=== PATIENT | female | born 1985 | race Caucasian/White ===

== ENCOUNTER 2023-10-22 18:04 | Emergency (ER) | payer MEDICARE, BC, SELFPAY ==
[2023-10-22 18:05] VITALS: BMI 34.7
[2023-10-22 18:06] VITALS: BP 107/77
--- NOTE | 2023-10-22 19:37 | ED.GENMED ---
History of Present Illness
General
Chief Complaint: Abdominal Symptoms
Source: patient and spouse
Exam Limitations: none
Time Seen by Provider: 10/22/23 19:20
Nursing documentation reviewed up to this point in time: agreed with
Travel History
Have you had any contact with someone who has COVID-19?: No
Do you have any symptoms of coronavirus? Fever > 100 degrees, chills, cough, shortness of breath, sore throat, loss of taste or smell, muscle aches, or headache?: No
History of Present Illness
History of Present Illness:
38-year-old female presents to the emergency department complaining of constipation and nausea. She has a history of appendiceal cancer with bowel resection. She also has a history of multiple sclerosis.
Past History
Past History
ED Past Medical History: Other (Madison's thyroiditis) and Other (MS, interstitial cystitis, appendiceal CA)
ED Past Surgical History: Bowel resection and Orthopedic (L4/5/S1)
Social History
Tobacco: Non-smoker
Alcohol: None
Drug: None
Review of Systems
Review of Systems
Allergies reviewed?: Yes
All Other Systems: Not applicable
Constitutional: Reports no symptoms
EENT: Reports no symptoms
Respiratory: Reports no symptoms
Cardiac: Reports no symptoms
ABD/GI: Reports abdominal pain, nausea and constipated
: Reports no symptoms
Musculoskeletal: Reports no symptoms
Skin: Reports no symptoms
Neurological: Reports no symptoms
Endocrine: Reports no symptoms
Hematologic/Lymphatic: Reports no symptoms
Psychiatric: Reports no symptoms
Phy Exam
Physical Exam
Physical Exam:
Physical Exam
General: afebrile
Neck: supple. no meningeal signs. normal posterior pharynx
Heart: s1/s2 regular rate and rhythm, no murmur. equal radial
pulses.
HEENT: Pupils equal round reactive to light, EOMI
Lungs: no acute respiratory distress. clear bilaterally
Abdomen: normal bowel sounds. diffuse tenderness, midline abdominal scar. no CVAT
Neuro: alert and oriented. no focal neurological deficits cranial nerves II through XII intact
Skin: no rash
Psychiatric: well kept. interactive and cooperative
Extremities: no edema. no calf tenderness. negative homans. good distal pulses
Course
Orders/Labs/Results
Orders:
Orders
10/22/23 19:33
IV Insert/Care/Rem.- Treatment PRN
Iohexol [Omnipaque] See Protocol PO NOW STA
10/22/23 19:34
CT Abd/pel W Iv And Oral Contr Urgent
Comment:
Reason For Exam: nausea, constipation
10/22/23 19:35
0.9% Sodium Chloride 1000 ml [Nss] 1,000 ml IV BOLUS
Ondansetron Injectable [Zofran] 4 mg IV NOW STA
10/22/23 19:54
Complete Blood Count/With Diff Urgent
10/22/23 20:31
Comprehensive Metabolic Panel Urgent
Lipase Urgent
10/22/23 23:08
Magnesium Citrate [Citroma] 300 ml PO ONCE ONE
Abnormal Lab Results
10/22/23 10/22/23
19:54 20:31
RBC 3.89 L 10^6/uL
(4.20-5.40)
Hct 35.1 L %
(37.0-47.0)
MCH 31.9 H pg
(27.0-31.0)
AST 51 H U/L
(14-36)
ALT 42 H U/L
(0-35)
Total Protein 9.1 H g/dl
(6.3-8.2)
10/22/23 19:54
10/22/23 20:31
Vital Signs
Initial and Last Documented VS:
Initial Vital Signs
Temp Pulse Resp BP Pulse Ox
98.2 F 97 20 107/77 98
10/22/23 18:06 10/22/23 18:06 10/22/23 18:06 10/22/23 18:06 10/22/23 18:06
Last Documented Vital Signs
Temp Pulse Resp BP Pulse Ox
98.2 F 97 20 107/77 98
10/22/23 18:06 10/22/23 18:06 10/22/23 18:06 10/22/23 18:06 10/22/23 18:06
MDM/Problems Addressed
Differential Diagnosis Includes:
Constipation, bowel obstruction
MDM/Problems Addressed:
38-year-old female with constipation. No signs of bowel obstruction. No signs of incarcerated hernia. Stable for discharge. Treat with dose of magnesium citrate to take at home.
Chronic conditions affecting care: Previous abdomnial surgery
Acute Exacerbation and/or Progression of Chronic Illness: Previous abdomnial surgery
*Radiology
Radiology exam reviewed: radiology read reviewed (CT abdomen pelvis no signs of bowel obstruction)
*Pulse Oximetry
Patient hypoxic: no
*EKG
Interpreted by ED Provider?: NA
*Assistant Farm Operations Manager Interpretation
Rate: Assistant Farm Operations Manager- N/A
*Critical Care Note
Total Time (30-74mins, 75-104mins- exclusive of procedures): Not Applicable
Patient Management
Social determinants of health affecting care: Living situation and Strong social support
Escalation/DeEscalation of care consider admission/obs:
Admit not indicated
ED Attending Note
-
Portions of this chart may have been created with voice recognition software.� Occasional wrong word or��sound alike� substitutions may have occurred due to the inherent limitations of voice recognition software.
Discharge Plan
Departure
Patient Disposition: Home (Routine Discharge)
Date of Disposition: 10/22/23
Time of Disposition: 23:09
Patient with high blood pressure during this ER visit?: No
Condition: Good
Discharge Problem:
Constipation
Instructions: Constipation, Adult (DC)
Prescriptions:
No Action
ondansetron 8 mg Tablet,Disintegrating
8 mg PO PRN PRN (Reason: Migraines)
selenium 200 mcg Tablet
200 mcg PO DAILY
levothyroxine [Synthroid] 200 mcg Tablet
200 mcg PO DAILY AT 0700
mupirocin 2 % Ointment
1 applic TOPICAL PRN PRN (Reason: cuts,sores)
epinephrine 0.3 mg/0.3 mL Auto-Injector
0.3 mg IM ONCE
acetylcysteine (bulk) Powder
1 ea MISCELLANEOUS DAILY
duloxetine [Cymbalta] 60 mg Capsule,Delayed Release(Dr/Ec)
60 mg PO HS
levocetirizine [Xyzal] 5 mg Tablet
5 mg PO HS
biotin 2,500 mcg Capsule
2,500 mcg PO DAILY
melatonin 5 mg Tablet
5 mg PO HS PRN (Reason: insomnia)
cholecalciferol (vitamin D3) [Vitamin D3] 50 mcg (2,000 unit) Tablet
50 mcg PO DAILY
Botox 200 unit Recon Soln
200 unit IM [id number]
diclofenac potassium [Cambia] 50 mg Powder In Packet
50 mg PO PRN PRN (Reason: Migraines)
pgasxama-morc-IU-calcium-mins 27 mg iron-400 mcg Tablet
1 tab PO DAILY
diclofenac submicronized [Zorvolex] 35 mg Capsule
35 mg PO PRN PRN (Reason: Migraines, pain)
Trulicity 1.5 mg/0.5 mL Pen Injector
1.5 mg SC FR
ivermectin [Soolantra] 1 % Cream
1 applic TOPICAL PRN PRN (Reason: Rosacea)
Zembrace Symtouch 3 mg/0.5 mL Pen Injector
3 mg SC PRN PRN (Reason: Migraines)
Deha 5 MG tablet
5 mg PO DAILY
Magnesium Chelate 1 CAPSULE capsule
1 cap PO DAILY
Probiotic 1 GUMMY tablet
2 tab PO DAILY
Sensitol 1 TAB tablet
2 tab PO BID
cyanocobalamin (vitamin B-12)
1 dose IM .Q2-3WEEKS
naltrexone 5 MG tablet
5 mg PO DAILY
acetaminophen 325 mg Tablet
650 mg PO Q4HPRN PRN (Reason: HEADACHE) Qty: 60 0RF
diazepam 2 mg Tablet
2 mg PO TIDPRN PRN (Reason: pelvic pain and spasm) Qty: 15 0RF
docusate sodium 100 mg Capsule
100 mg PO BID Qty: 60 0RF
simethicone [Gas Relief 80 (simethicone)] 80 mg Tablet,Chewable
80 mg PO Q6HPRN PRN (Reason: gas distention) Qty: 5 0RF
ketorolac 10 mg tablet
10 mg PO Q8H PRN (Reason: pain) Qty: 12 0RF
insulin glargine [Lantus Solostar U-100 Insulin] 100 unit/mL (3 mL) Insulin Pen
80 unit SC DAILY
Referrals:
Kimberly Laughlin MD [Family Provider] - Call in 1-3 days for appt
Interventions
Interventions:
*Risk Screen - Suicide Last Done: 10/22/23 18:06
*General Assessment Last Done: 10/22/23 18:06
*Neglect/Abuse Screening Last Done: 10/22/23 18:06
Discharge Date and Time
Print Language: MALAY
[2023-10-22] MEDS: OMNIPAQUE 50 ML PO (19:55)
[2023-10-22 20:04] LABS: % Basophils 0.4 % (0-2); % Eosinophils 1.4 % (0-6); % Immature Granulocytes 0.2 % (0-0.5); % Lymphocytes 36.2 % (20.5-51.1); % Monocytes 9.2 % (1.7-9.3); % Neutrophils 52.6 % (42.2-75.2); Absolute Eosinophils 0.1 10^3/uL (0-0.7); Absolute Monocytes 0.5 10^3/uL (0.1-0.6); Absolute Neutrophils 2.9 10^3/uL (1.4-6.5); Hematocrit 35.1 % (37.0-47.0); Hemoglobin 12.4 g/dL (12.0-16.0); Mean Corp Hgb Conc. 35.3 g/dL (33.0-37.0); Mean Corpuscular Hgb 31.9 pg (27.0-31.0); Mean Corpuscular Volume 90.2 fL (81.0-99.0); Mean Platelet Volume 10.3 fL (7.4-10.4); Nucleated Red Blood Cells % 0 %; Platelet Count 219 10^3/uL (130-400); Red Blood Cell Count 3.89 10^6/uL (4.20-5.40); Red Cell Dist. Width 14.1 % (11.5-14.5); White Blood Cell Count 5.5 10^3/uL (4.8-10.8)
[2023-10-22] MEDS: ZOFRAN 4 MG IV (20:33)
[2023-10-22] MEDS: NSS 1000 IV (20:33)
[2023-10-22 20:55] LABS: ALT (SGPT) 42 U/L (0-35); AST (SGOT) 51 U/L (14-36); Albumin 4.5 g/dl (3.5-5.0); Alkaline Phosphatase 122 U/L (38-126); Blood Urea Nitrogen 15 mg/dl (7-17); Carbon Dioxide 25 mmol/L (22-30); Chloride 103 mmol/L (98-107); Glucose 82 mg/dl (70-99); Lipase 88 U/L (23-300); Potassium 4.1 mmol/L (3.5-5.1); Sodium 136 mmol/L (135-145); Total Bilirubin 0.6 mg/dl (0.2-1.3); Total Protein 9.1 g/dl (6.3-8.2); eGFR > 60.00
[2023-10-22] MEDS: CITROMA 300 ML PO (23:15)
[2023-10-22 23:20] VITALS: BP 108/77
== END 2023-10-22 23:22 | disposition home or self-care (01) ==
LOC: EMR 18:04
PROVIDERS: EMERGENCY PHYSICIAN Emergency Medicine; FAMILY PHYSICIAN Internal Medicine
DX: K59.00 Constipation, unspecified (principal); R11.0 Nausea; G35 Multiple sclerosis; E06.3 Autoimmune thyroiditis; Z85.038 Personal history of other malignant neoplasm of large intestine; Z90.49 Acquired absence of other specified parts of digestive tract; Z90.721 Acquired absence of ovaries, unilateral; Z98.1 Arthrodesis status
CPT/HCPCS: 99284; 96374; 96361; 74177; 80053; 83690; 85025; Q9967

== ENCOUNTER 2023-10-24 20:23 | Inpatient (IN) | payer MEDICARE, SELFPAY ==
[2023-10-24 16:27] VITALS: BP 98/75; BMI 34.3
[2023-10-24 16:54] LABS: % Basophils 0.2 % (0-2); % Eosinophils 1.7 % (0-6); % Immature Granulocytes 0.2 % (0-0.5); % Lymphocytes 29.9 % (20.5-51.1); Absolute Eosinophils 0.1 10^3/uL (0-0.7); Absolute Lymphocytes 1.4 10^3/uL (1.2-3.4); Absolute Monocytes 0.6 10^3/uL (0.1-0.6); Absolute Neutrophils 2.6 10^3/uL (1.4-6.5); Hematocrit 33.7 % (37.0-47.0); Hemoglobin 11.9 g/dL (12.0-16.0); Mean Corp Hgb Conc. 35.3 g/dL (33.0-37.0); Mean Corpuscular Hgb 31.3 pg (27.0-31.0); Mean Corpuscular Volume 88.7 fL (81.0-99.0); Mean Platelet Volume 10.3 fL (7.4-10.4); Nucleated Red Blood Cells % 0 %; Platelet Count 216 10^3/uL (130-400); Red Cell Dist. Width 14.2 % (11.5-14.5); White Blood Cell Count 4.7 10^3/uL (4.8-10.8)
[2023-10-24 17:05] LABS: ALT (SGPT) 39 U/L (0-35); AST (SGOT) 47 U/L (14-36); Albumin 4.2 g/dl (3.5-5.0); Alkaline Phosphatase 106 U/L (38-126); Blood Urea Nitrogen 13 mg/dl (7-17); Calcium 9.8 mg/dl (8.4-10.2); Carbon Dioxide 30 mmol/L (22-30); Chloride 104 mmol/L (98-107); Estimated Creatinine Clearance 121 ml/min; Glucose 105 mg/dl (70-99); Lipase 67 U/L (23-300); Potassium 4.1 mmol/L (3.5-5.1); Sodium 136 mmol/L (135-145); Total Bilirubin 0.5 mg/dl (0.2-1.3); Total Protein 8.3 g/dl (6.3-8.2); eGFR > 60.00
--- NOTE | 2023-10-24 18:31 | ED.GENMED ---
History of Present Illness
General
Chief Complaint: Abdominal Pain
Source: patient
Exam Limitations: none
Time Seen by Provider: 10/24/23 18:08
Travel History
Have you had any contact with someone who has COVID-19?: No
Do you have any symptoms of coronavirus? Fever > 100 degrees, chills, cough, shortness of breath, sore throat, loss of taste or smell, muscle aches, or headache?: No
History of Present Illness
History of Present Illness:
This is a 38 year old female that comes in with c/o constipation and abd pain. States that she was her mariaelena the and had a CT scan. Patient was sent home with Magnesium citrate and about 2 hours after taking she vomited. States that the GI
specialist called her and she felt that there was blockage at the Transverse and descending colon. States that she felt this could be related to scar tissue. States that she was told to massage the area and use Fleet enemas. Patient did 4 enemas
with barely any results. States that she can't eat or drink and it comes right back up. States that she was told to come to the ER. States that this could be medication related as she had to change her medication. States that she is nauseated.
vomiting, has abd pain, headache, dizziness and some SOB. Denies any fever, chills, chest pain, diarrhea, urinary burning.
Past History
Past History
ED Past Medical History: Hypothyroidism, Other (Madison's thyroiditis, Migraines, Multiple sclerosis, Numbness and tingling arms and legs, Sleep apnea, Endometriosis, Neurogenic bladder, PCOS, ), Other (Rosacea, Motility issues) and Other (MS,
interstitial cystitis, appendiceal CA)
ED Past Surgical History: Bowel resection, Cholecystectomy, Gynecological (Phong oophorectomy, Tubes removed, ), Orthopedic (L4/5/S1 Fusion, Laminectomy, Discectomy, Left hip labral repair, Carpal tunnel, Right achilles repair) and Other
(Hemicolectomy Greater and less mentectomy with omental bursectomy, Peritoectomy, Abd ligamentum tares excision. )
Social History
Tobacco: Non-smoker
Alcohol: None
Drug: None
Personal:
Living: with family
Review of Systems
Review of Systems
All Other Systems: ROS reviewed and negative except as documented in HPI and ROS
Constitutional: Reports no symptoms; Denies fever or chills
EENT: Reports no symptoms
Respiratory: Reports trouble breathing; Denies cough
Cardiac: Reports no symptoms; Denies chest pain
ABD/GI: Reports abdominal pain, nausea and vomiting; Denies diarrhea
: Reports no symptoms; Denies dysuria, frequency or urgency
Musculoskeletal: Reports no symptoms
Skin: Reports no symptoms
Neurological: Reports dizzy and headache
Psychiatric: Reports no symptoms
Phy Exam
General Physical Exam
General Presentation: no apparent distress
General age: appears stated age
General Skin: warm and dry
General Habitus: normal
General Mental: alert
General Hydration: appears well hydrated
ENT Exam
ENT Exam: TM's normal, pharynx normal and neck supple
Eye Exam
Eye Exam: EOMI
Cardiovascular Exam
Cardiovascular Exam: regular rate/rhythm, no edema, no murmur and normal peripheral pulses
Pulmonary Exam
Pulmonary Exam: lungs clear, no respiratory distress, no rales, chest non tender, no crackles, no rhonchi, no wheezing and no cough
Gastrointestinal Exam
Gastrointestinal Exam: soft, no organomegaly, no pulsatile mass, non distended, tender (Left sided abd tendereness with palpation) and other (Very hypoactive bowel sounds)
Musculoskeletal Exam
Musculoskeletal Exam: full ROM and no edema
Skin Exam
Skin Exam: normal color, warm/dry, no rash and no petechia
Psychiatric Exam
Psychiatric Exam: normal mood/affect
Course
Orders/Labs/Results
Orders:
Orders
10/24/23 16:40
Complete Blood Count/With Diff Urgent
Comprehensive Metabolic Panel Urgent
HCG, Serum Qualitative Screen Urgent
Comment: ADD ON
Lipase Urgent
TSH Urgent
Comment: ADD ON
10/24/23 18:40
0.9% Sodium Chloride 1000 ml [Nss] 1,000 ml IV BOLUS
Acetaminophen 1000MG/100Ml [Ofirmev] 1,000 mg in 100 ml IV ONCE
Acetaminophen IV Indication:: ED Narcotic Naive Pt-ONCE
10/24/23 18:46
Obstruct Series W/PA Chest [CR Obstruct Series W/pa Chest] Urgent
Comment: Had CT on the
Reason For Exam: abd pain
10/24/23 19:29
Test Result ONCE
10/24/23 19:45
Admit/Transfer Patient As Directed
Co-Sign Provider:
Level of Care: Inpatient admission
Assign to:: Medical/Surgical
Physician / Group: hospitalist
Diagnosis: ileus
Reason for Hospitalization: ileus
Expected length of stay greater than two midnights?: Yes
ELOS- Estimated Length of Stay in days: 2
I certify the patient meets the requirements for IP care: Yes
10/24/23 19:53
Code Status As Directed
Resuscitation Status: Full Code
10/24/23 19:59
Ondansetron HCl [Zofran] 4 mg PO Q8HPRN PRN
10/24/23 20:06
Ondansetron Injectable [Zofran] 4 mg .ROUTE .STK-MED ONE
10/24/23 20:13
Ondansetron Injectable [Zofran] 4 mg IV NOW STA
10/24/23 21:08
Bisacodyl [Dulcolax] 10 mg RECTAL [id number] PRN
Dextrose 5%/Lactringers 1000ML [D5lr] 1,000 ml IV 100 mls/hr
Dextrose 50%-Water [Dextrose 50% Syringe] 12.5 grams IV [id number] PRN
Docusate W/Senna [Senokot-S] 1 tablet PO BIDPRN PRN
Glucagon [GlucaGen] 1 mg IM PRN PRN
Polyethylene Glycol Powder [Miralax] 17 grams PO DAILYPRN PRN
10/24/23 21:08
GASTROINTESTINAL CONSULT Routine
Consulting Provider: Jose Thakur
Was physician already notified: Yes
Reason for consult: constipation
Activity As Directed
Activity Level: Out of Bed-Early Mobility
Bedside Glucose Monitoring As Directed
Frequency: AC&HS
Additional Instructions:: Change to q6h if pt on TPN, tube feeding or not eating
Enema As Directed
Type: Milk and molasses
Amount: 50/50
Frequency: once
Location: Rectal
Vital Signs As Directed
Frequency: Per unit guidelines
DX Deep Vein Thrombosis Video Routine
10/25/23 00:00
Heparin 5,000 units SC Q8
10/25/23 Breakfast
NPO
Allow oral meds: Yes
Allow clear liquids: Sips of Clears
NPO with Ice Chips: Yes
Complete Blood Count/With Diff IN AM
Comprehensive Metabolic Panel IN AM
Glycohemoglobin (HgbA1c) IN AM
Hepatitis B Core Ab, IgM IN AM
Hepatitis B Core Ab, Total IN AM
Hepatitis B Surface Antibody IN AM
Hepatitis B Surface Antigen IN AM
Hepatitis C Antibody IN AM
Magnesium IN AM
10/25/23 07:00
Levothyroxine [Synthroid] 200 mcg PO DAILY AT 0700
10/25/23 07:30
Insulin Aspart Corrective Mod [Novolog Flexpen-Moderate Resistance] See Protocol SC AC
Abnormal Lab Results
10/24/23
16:40
WBC 4.7 L 10^3/uL
(4.8-10.8)
RBC 3.80 L 10^6/uL
(4.20-5.40)
Hgb 11.9 L g/dL
(12.0-16.0)
Hct 33.7 L %
(37.0-47.0)
MCH 31.3 H pg
(27.0-31.0)
Monocytes % 13.0 H %
(1.7-9.3)
Glucose 105 H mg/dl
(70-99)
AST 47 H U/L
(14-36)
ALT 39 H U/L
(0-35)
Total Protein 8.3 H g/dl
(6.3-8.2)
TSH 0.35 L uIU/ml
(0.47-4.68)
10/24/23 16:40
10/24/23 16:40
H/H slightly low. Glucose nonfasting. AST/ALT slightly elevated. Lipase normal at 67
Vital Signs
Initial and Last Documented VS:
Initial Vital Signs
Temp Pulse Resp BP Pulse Ox
98.1 F 73 16 98/75 97
10/24/23 16:27 10/24/23 16:27 10/24/23 16:27 10/24/23 16:27 10/24/23 16:27
Last Documented Vital Signs
Temp Pulse Resp BP Pulse Ox
98.1 F 56 18 116/68 99
10/24/23 23:55 10/24/23 23:55 10/24/23 23:55 10/24/23 23:55 10/24/23 23:55
MDM/Problems Addressed
Differential Diagnosis Includes:
Bowel obstruction. Constipation.
MDM/Problems Addressed:
This is a 38 year old female that comes in with c/o abd pain and constipation. States that she as here on the 7th and had a CT scan. States that she was given Magnesium citrate and sent home. States that her GI doctor dose not agree with the CT
reading and feels that the patient has a blockage. Patient has not been able to eat or drink as she then will vomit. Patient was told to come to the ER.
Will check labs and admit.
Chronic conditions affecting care: Previous abdomnial surgery
Acute Exacerbation and/or Progression of Chronic Illness: Previous abdomnial surgery
*Radiology
Radiology exam reviewed: radiology read reviewed (OBSTRUCTION SERIES-NO evidence of active cardiopulmonary disease. Administered oral contrast from Ct scan of October 22, 2023 is seen mainly within the colon. This contrast has progressed to the
inferior aspect of the descending colon. No definite contrast is seen within the rectum on the present exam.) and other (X-ray cont- NO evidence of free intraperitoneal air. )
*Pulse Oximetry
Patient hypoxic: no
*EKG
Interpreted by ED Provider?: NA
Rate: EKG- N/A
*[place] Interpretation
Rate: [place]- N/A
*Critical Care Note
Total Time (30-74mins, 75-104mins- exclusive of procedures): Not Applicable
ED Attending Note
-
Portions of this chart may have been created with voice recognition software.� Occasional wrong word or��sound alike� substitutions may have occurred due to the inherent limitations of voice recognition software.
Discharge Plan
Departure
Patient Disposition: Admit
Date of Disposition: 10/24/23
Time of Disposition: 19:21
Admit to: Med/Surg
Presentation/result/management discussed w/ accepting MD/DO: Hospitalist
Patient with high blood pressure during this ER visit?: No
Condition: Good
Covid-19: Not Applicable
Discharge Problem:
Abdominal pain, Nausea & vomiting
Interventions
Interventions:
*Risk Screen - Suicide Last Done: 10/24/23 16:27
*General Assessment Last Done: 10/24/23 19:50
*Neglect/Abuse Screening Last Done: 10/24/23 16:27
ED- Fall Risk Assessment Last Done: 10/24/23 19:50
*ED COVID-19 Vaccine History Last Done: 10/24/23 19:50
*Nursing Disposition Last Done: 10/24/23 20:58
KW-Qydjmv-Swfklyysew Assessment Last Done: 10/24/23 19:50
Discharge Date and Time
Discharge Date/Time: 10/24/23 21:00
[2023-10-24 19:50] VITALS: BP 114/69
--- NOTE | 2023-10-24 19:57 | HPS.HSE ---
Addendum entered and electronically signed by Luis Miguel Cooper MD 10/24/23 20:00:
MOM enema as per GI
Original Note:
Family Physician
-
Family Physician: iKmberly Laughlin
Chief Complaint
-
n/v/constipation
History of Present Illness
38yo F with hypothyroidism, DM, Hx of CA s/p appendectomy and R hemicolectomy came 2 days before current admission with c/o vomiting, CT done at that time did not show significant acute findings, contrast reached transverse colon. Was started on
laxative enemas 2/2 constipation, however it did not improve, so her GI sent her to the hospital again.
Patient recently had to switch from Monjaro to Trulicity and previously had Hx of constipation with Trulicity
Medical History
Past Medical History
Past Medical History: Reports Other
Additional Past Medical History:
See above
Past Surgical History: Reports Other
Additional Past Surgical History:
see above
Social History
Tobacco: Non-smoker
Alcohol: None
Drug: None
Personal:
Family History
Family History: Not pertinent
Allergies / Home Medications
Allergies reflects when Allergies were last updated in [facility].
Home Medications with original date entered in [facility]
Allergy/Medication List:
Allergies
Allergy/AdvReac Type Severity Reaction Status Date / Time
bacitracin Allergy Contact Verified 10/24/23 16:30
Dermatitis
cefaclor [From Ceclor] Allergy Hives, Verified 10/24/23 16:30
Joint,
Tongue and
Lip
swelling
gabapentin Allergy Hives, Verified 10/24/23 16:30
Joint
Swelling
glatiramer (copolymer 1) Allergy Anaphylaxis Verified 10/24/23 16:30
[From Copaxone]
neomycin Allergy Contact Verified 10/24/23 16:30
Dermatitis
Home Medications
Deha 5 mg PO DAILY Supplement 03/26/22
Magnesium Chelate 1 cap PO DAILY Electrolyte Repletion 03/26/22
Probiotic 2 tab PO DAILY PROBIOTIC 03/26/22
Sensitol 2 tab PO BID Diabetes 03/26/22
acetylcysteine (bulk) 1 ea miscellaneous DAILY Supplement 03/26/22
biotin 2,500 mcg capsule 2,500 mcg PO DAILY Supplement 03/26/22
cholecalciferol (vitamin D3) 50 mcg (2,000 unit) tablet (Vitamin D3) 50 mcg PO DAILY Supplement 03/26/22
cyanocobalamin (vitamin B-12) 1 dose IM .Q2-3WEEKS Supplement 03/26/22
diclofenac potassium 50 mg oral powder packet (Cambia) 50 mg PO PRN PRN Migraines 03/26/22
diclofenac submicronized 35 mg capsule (Zorvolex) 35 mg PO PRN PRN Migraines, pain 03/26/22
dulaglutide 1.5 mg/0.5 mL subcutaneous pen injector (Trulicity) 1.5 mg SC FR Diabetes 03/26/22
duloxetine 60 mg capsule,delayed release (Cymbalta) 60 mg PO HS Depression 03/26/22
epinephrine 0.3 mg/0.3 mL injection, auto-injector 0.3 mg IM ONCE Allergies 03/26/22
ivermectin 1 % topical cream (Soolantra) 1 applic topical PRN PRN Rosacea 03/26/22
levocetirizine 5 mg tablet (Xyzal) 5 mg PO HS Allergies 03/26/22
levothyroxine 200 mcg tablet (Synthroid) 200 mcg PO DAILY AT 0700 Thyroid 03/26/22
melatonin 5 mg tablet 5 mg PO HS PRN insomnia 03/26/22
multivitamin-iron 27 mg-folic acid 400 mcg-calcium and minerals tablet 1 tab PO DAILY Supplement 03/26/22
mupirocin 2 % topical ointment 1 applic topical PRN PRN cuts,sores 03/26/22
naltrexone 5 mg PO DAILY Substance use disorder 03/26/22
onabotulinumtoxinA 200 unit solution for injection (Botox) 200 unit IM [id number] MIGRAINES 03/26/22
ondansetron 8 mg disintegrating tablet 8 mg PO PRN PRN Migraines 03/26/22
selenium 200 mcg tablet 200 mcg PO DAILY Supplement 03/26/22
sumatriptan succinate 3 mg/0.5 mL subcutaneous pen injector (Zembrace Symtouch) 3 mg SC PRN PRN Migraines 03/26/22
acetaminophen 325 mg tablet 650 mg (2 x 325 mg) PO Q4HPRN PRN HEADACHE #60 tabs 03/28/22
diazepam 2 mg tablet 2 mg PO TIDPRN PRN pelvic pain and spasm #15 tabs 03/28/22
docusate sodium 100 mg capsule 100 mg PO BID #60 caps 03/28/22
simethicone 80 mg chewable tablet (Gas Relief 80 (simethicone)) 80 mg PO Q6HPRN PRN gas distention #5 tabs 03/28/22
ketorolac 10 mg tablet 10 mg PO Q8H PRN pain #12 tabs 05/25/22
insulin glargine 100 unit/mL (3 mL) subcutaneous pen (Lantus Solostar U-100 Insulin) 80 unit SC DAILY 03/04/23
Review of Systems
-
A 12 point ROS was completed and negative except as noted: Yes
Abdomen/GI: Reports See HPI
Physical Exam
Vital Signs
Vital Signs
Temp Pulse Resp BP Pulse Ox
98.1 F 61 20 114/69 99
10/24/23 19:50 10/24/23 19:50 10/24/23 19:50 10/24/23 19:50 10/24/23 19:50
Physical Exam
General: Well Developed and Well Nourished
HEENT: NormoCephalic and Anicteric
Respiratory: Clear; No Wheezes or Rales
Cardiac: S1/S2 and Regular Rhythm
GI: Tender (L side)
Genito-urinary: No costovertebral tender
Musculoskeletal: No Clubbing, No Cyanosis and No Edema
Skin: Warm
Neuro: Awake, Alert and Oriented
Psych: Calm
Laboratory Results
-
10/24/23 16:40
10/24/23 16:40
Laboratory Results
Total Bilirubin 0.5 mg/dl (0.2-1.3) 10/24/23 16:40
AST 47 U/L (14-36) H 10/24/23 16:40
ALT 39 U/L (0-35) H 10/24/23 16:40
Alkaline Phosphatase 106 U/L (38-126) 10/24/23 16:40
Lipase 67 U/L (23-300) 10/24/23 16:40
Data Reviewed
-
Lab Data: Labs Reviewed by me
Impression/Plan
-
IMPRESSION/PLAN:
#Nause/Vomiting with ileus
Lipase WNL
Since HX of hemicolectomy - reasonable to rpeeat obstructive series (after neg test)
NPO
NG tube if vomiting reoccurs
Zofran PRN
GI consult
#Transaminitis
Check hepatitis profile
follow LFT
#Hypothyroidism
Check TSH
cont synthroid
#DM type 2 with neuropathy
Accuchecks, insulin SS, DM diet when able to eat
Hold bolus while NPO
DVT ppx hep
FUll code
I have spent at least 78min admitting the patient, communicating to the family and providing direct patient care
[2023-10-24] MEDS: OFIRMEV 100 IV (20:08)
[2023-10-24] MEDS: NSS 1000 IV (20:08)
[2023-10-24] MEDS: ZOFRAN 4 MG IV (20:13)
--- NOTE | 2023-10-24 21:02 | PHANOTE ---
10/24/2023, med rec tech, spoke to pt. to obtain their med. history; pt. states to be taking Trulicity 3 mg/0.5ml Qweek but could not confirm with another source.
[2023-10-24 21:10] VITALS: BP 122/66; BMI 33.9
[2023-10-24 21:44] LABS: HCG, Serum Qualitative Screen Negative
[2023-10-24 22:18] LABS: TSH 0.35 uIU/ml (0.47-4.68)
[2023-10-24 23:55] VITALS: BP 116/68
--- NOTE | 2023-10-25 00:12 | PTCARENOTE ---
Pt arrived from ED at aprox 2110 this evening. Pt able to walk into room unassisted. Pt admission and assessment done. Pt given milk/ molasses enema with + results. Pt instructed to ring for assistance.
[2023-10-25 00:18] LABS: Glucose - Point of Care 97 mg/dl (70-99)
[2023-10-25] MEDS: D5LR 1000 IV ×3 (00:18→18:07)
[2023-10-25] MEDS: HEPARIN SC (00:19)
[2023-10-25] MEDS: VALIUM 10 MG PO ×2 (01:27→21:36)
[2023-10-25] MEDS: ZOFRAN 4 MG PO ×2 (05:56→20:36)
[2023-10-25] MEDS: SYNTHROID 100 MCG PO (05:56)
[2023-10-25] MEDS: SYNTHROID 75 MCG PO (05:57)
[2023-10-25 06:03] LABS: Glucose - Point of Care 104 mg/dl (70-99)
[2023-10-25 06:16] LABS: % Basophils 0.4 % (0-2); % Eosinophils 2.1 % (0-6); % Immature Granulocytes 0.2 % (0-0.5); % Lymphocytes 39.4 % (20.5-51.1); % Monocytes 9.9 % (1.7-9.3); Absolute Eosinophils 0.1 10^3/uL (0-0.7); Absolute Lymphocytes 1.9 10^3/uL (1.2-3.4); Absolute Monocytes 0.5 10^3/uL (0.1-0.6); Absolute Neutrophils 2.3 10^3/uL (1.4-6.5); Hematocrit 30.9 % (37.0-47.0); Hemoglobin 10.8 g/dL (12.0-16.0); Mean Corpuscular Hgb 31.1 pg (27.0-31.0); Mean Platelet Volume 10.3 fL (7.4-10.4); Nucleated Red Blood Cells % 0 %; Platelet Count 192 10^3/uL (130-400); Red Blood Cell Count 3.47 10^6/uL (4.20-5.40); Red Cell Dist. Width 14.2 % (11.5-14.5); White Blood Cell Count 4.8 10^3/uL (4.8-10.8)
[2023-10-25 06:48] LABS: ALT (SGPT) 32 U/L (0-35); AST (SGOT) 40 U/L (14-36); Albumin 3.5 g/dl (3.5-5.0); Alkaline Phosphatase 97 U/L (38-126); Blood Urea Nitrogen 12 mg/dl (7-17); Calcium 9.3 mg/dl (8.4-10.2); Carbon Dioxide 28 mmol/L (22-30); Chloride 108 mmol/L (98-107); Estimated Creatinine Clearance > 125 ml/min; Glucose 90 mg/dl (70-99); Potassium 3.7 mmol/L (3.5-5.1); Sodium 140 mmol/L (135-145); Total Bilirubin 0.5 mg/dl (0.2-1.3); Total Protein 7.2 g/dl (6.3-8.2); eGFR > 60.00
[2023-10-25 07:15] LABS: Hepatitis B Surface Antigen Negative (Negative)
[2023-10-25 07:30] VITALS: BP 115/80
[2023-10-25 07:34] LABS: Hepatitis B Core Ab, Total Reactive (Negative); Hepatitis C Antibody Negative (Negative)
[2023-10-25 08:33] LABS: Hepatitis B Surface Antibody Positive
[2023-10-25] MEDS: HEPARIN 5000 UNITS SC ×3 (08:39→23:18)
[2023-10-25 08:48] LABS: Hepatitis B Core Ab, IgM Negative (Negative)
[2023-10-25 08:59] LABS: Glycohemoglobin (HgbA1c) 4.5 % (4.0-5.6)
--- NOTE | 2023-10-25 10:29 | CON.GI ---
Addendum entered and electronically signed by Faby Osman NP 10/25/23 16:26:
Office follow-up 11/15/23 @ 11:30 with myself in the office, placed on discharge information.
Addendum entered and electronically signed by Mary Vieyra DO 10/25/23 12:37:
I saw and examined the patient.
The DRESSED POULTRY GRADER or PA's note was reviewed and I agree with the note.
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
dysmotility admitted with worsening constipation and abdominal pain. She follows with Dr. Jin and had recently been started on Linzess in addition to Motegrity. She notes recently resuming Trulicity, previously on Mounjaro but ran out of the
medication. Few she feels like her constipation worsened at this time. After adding Linzess, she did not notice much of a difference, on admission she received a milk of molasses enema and shortly after that had a large volume of stool followed by
passing a lot of flatus. At this time she feels significantly improved, and improve bloating and abdominal distention as well. This was the first time she has had an appetite in the last week.
Abdominal Xray 10/23: Contrast is present within the transverse colon and splenic flexure, with some contrast extending into the inferior aspect of the descending colon. No definite contrast is seen within the rectum
CT scan on 10/23 w/o evidence of obstruction, PO contrast is seen reaching the left-side of the transverse colon.
CT scan on 10/21 which showed no evidence of a bowel obstruction but did show significant left sided colonic stool burden.
I suspect abrupt change in bowel habits was due to changing to Trulicity. Recommend resuming bowel regimen at this time, will start MiraLAX twice daily. She can be discharged on her home Motegrity as well as the Linzess samples she has but I would
advise her to take an additional dose of MiraLAX if no bowel movement on her regimen after a day and she can continue to up titrate as needed. She will speak to her online content coordinator regarding the Trulicity. Will also add in simethicone as needed.
Original Note:
Consultation
-
Date/Time Consultation Requested: 10/24/23
Date/Time Consultation Performed: 10/25/23 @ 10:30
Requesting Provider: Dr. Cooper
Performing Provider: ABRAM Rodriguez; Dr. Mary Vieyra
Reason for Consultation: constipation
Medical History
Chief Complaint / HPI
Chief Complaint: nausea, vomiting, constipation
History of Present Illness:
The patient is a 38-year-old female with a complex past medical history including appendiceal cancer status post right hemicolectomy and other numerous surgeries as well as chemotherapy, MS, GI dysmotility, hypothyroidism, Madison's disease,
diabetes on Trulicity, status post cholecystectomy, who presented to the emergency room with complaints of nausea, vomiting, and constipation, which we are being asked to evaluate for. Upon review of records the patient is known to Dr. Jin in our
office, last seen on September 25 due to difficulty with moving her bowels. She was placed on Motegrity at that time with consideration of adding Linzess or Trulance to help with her bowels. She has had multiple surgeries and chemotherapy given her
history of appendiceal cancer, and was pending approval for surgery of abdominal reconstruction with lysis of adhesions which thought may help her GI symptoms. She had been having vomiting and constipation at home and had undergone an outpatient CT
scan on 10/21 which showed no evidence of a bowel obstruction but did show significant left sided colonic stool burden. She was advised to start on enemas at home and to go to the emergency room if she had worsening symptoms. She notes that she had
been having ongoing constipation as of recently. She notes that she has been on Mounjaro for her diabetes which was well-controlled. She notes that she did not have any significant symptoms in relation to using this but this medication became
unavailable and she had to switch back to Trulicity at the beginning of September. She notes that since then she has had progressive constipation, which had been present when she was on Trulicity in the past. She notes that she was using stool
softeners due to having very small hard stool balls, but this was not helping. She then added Senokot which did not produce a bowel movement but made her extremely gassy. She was straining significantly and did have some traces of blood on toilet
paper but this was thought to be related to hemorrhoids. She had been taking Motegrity along with Linzess but did not see any improvement. She notes that her abdomen did get progressively distended and was having discomfort along the left upper
abdomen. She denies any melena, hematochezia, or hematemesis. She does admit to nausea with episodes of vomiting as well. She notes her last dose of Trulicity was on Saturday. Her last bowel movement was last Saturday prior to her admission.
She otherwise denies any fevers, chills, chest pain, shortness of breath, dysphagia, odynophagia, or significant weight loss. She denies any use of NSAIDs. Last EGD and colonoscopy as noted below. She had initial diagnosis of appendiceal cancer
after undergoing laparoscopic surgery in March [address] Forrester. She was referred to [facility] where she underwent initial surgery with Dr. Desai and underwent HIPEC treatment along with other numerous surgeries including right hemicolectomy.
She underwent an x-ray of the abdomen which did not show any significant signs of obstruction. She was made n.p.o., and given a milk and molasses enema. She did have significant bowel movements overnight, and reports that her vomiting has
subsided.
Past Medical History
Past Medical History: Cancer (Appendiceal cancer), Fibromyalgia, GERD, Hypothyroidism (Madison's disease), NIDDM and Other (MS, sleep apnea)
Past Surgical History: Appendectomy, Bowel Resection (Right hemicolectomy, cytoreductive surgery), Cholecystectomy, Gynecological (Left ovarian cystectomy, excision of endometriosis, excision of right labial lesion), Orthopedic (Lumbar fusion) and
Other (Carpal tunnel release)
Social History
Tobacco: Non-Smoker
Alcohol: None
Drug: None
Family History
Family History: Other (Family history of colon polyps among father and mother)
Allergies / Home Medications
Allergy/AdvReac Type Severity Reaction Status Date / Time
bacitracin Allergy Contact Verified 10/24/23 16:30
Dermatitis
cefaclor [From Ceclor] Allergy Hives, Verified 10/24/23 16:30
Joint,
Tongue and
Lip
swelling
gabapentin Allergy Hives, Verified 10/24/23 16:30
Joint
Swelling
glatiramer (copolymer 1) Allergy Anaphylaxis Verified 10/24/23 16:30
[From Copaxone]
neomycin Allergy Contact Verified 10/24/23 16:30
Dermatitis
�Medication �Instructions �Recorded
Botox 1 dose IM [id number] Migraine 10/24/23
Lactobac no.2-Bifidobac no.1-S. 2 cap PO DAILY Supplement 10/24/23
thermo 112.5 billion cell capsule
(Visbiome)
Linzess 1 cap PO DAILYPRN PRN diarrhea 10/24/23
azelastine 137 mcg-fluticasone 50 1 spray intranasal BID 10/24/23
mcg/spray nasal spray
cholecalciferol (vitamin D3) 75 75 mcg PO DAILY Supplement 10/24/23
mcg (3,000 unit) tablet
cyanocobalamin (vitamin B-12) 1,000 mcg IM QMONTH Supplement 10/24/23
1,000 mcg/mL injection solution
diazepam 5 mg tablet 5 mg PO DAILYPRN PRN anxiety 10/24/23
diazepam 5 mg tablet 10 mg PO HS Sleep 10/24/23
diclofenac potassium 50 mg oral 50 mg PO DAILY PRN migraines 10/24/23
powder packet
diclofenac potassium 50 mg tablet 50 mg PO TID PRN migraines 10/24/23
dulaglutide 3 mg/0.5 mL 3 mg SC SA Diabetes 10/24/23
subcutaneous pen injector
(Trulicity)
estradiol 0.1 mg/24 hr semiweekly 1 patch transdermal MOWEFR@219910/24/23
transdermal patch (Norma) Hormonal Agent
estradiol 10 mcg vaginal tablet 10 mcg vaginal MOTH@2199 Hormonal 10/24/23
Agent
levocetirizine 5 mg tablet (Xyzal) 5 mg PO HS Allergies 10/24/23
levothyroxine 175 mcg tablet 175 mcg PO DAILY Thyroid 10/24/23
lidocaine HCl 2 % mucosal jelly in 1 applic topical QIDPRN PRN 10/24/23
applicator vaginal area
melatonin 5 mg tablet 5 mg PO HS PRN sleep 10/24/23
mupirocin 2 % topical ointment 1 applic topical BID PRN cuts, 10/24/23
sores on abd folds
naltrexone 5 mg PO HS itching 10/24/23
ondansetron 8 mg disintegrating 8 mg PO Q8H PRN nausea/vomiting 10/24/23
tablet
pantoprazole 40 mg tablet,delayed 40 mg PO DAILY Gastrointestinal 10/24/23
release Issue
progesterone micronized 200 mg 200 mg PO DIRECTED Hormonal 10/24/23
capsule Agent
prucalopride 2 mg tablet 2 mg PO QPM Constipation 10/24/23
(Motegrity)
sumatriptan succinate 3 mg/0.5 mL 3 mg SC Q1HPRN PRN migraines 10/24/23
subcutaneous pen injector
(Zembrace Symtouch)
therapeutic multivitamin 1 tab PO DAILY Supplement 10/24/23
venlafaxine 37.5 mg 37.5 mg PO DAILY Depression 10/24/23
capsule,extended release 24 hr
vibegron 75 mg tablet (Gemtesa) 75 mg PO DAILY Urinary Issue 10/24/23
Review of Systems
-
History Source: Patient
Constitutional: Reports No Symptoms
EENT: Reports No Symptoms
Respiratory: Reports No Symptoms
Cardiac: Reports No Symptoms
Abdomen/GI: Reports Abdominal Pain, Nausea, Vomiting and Constipated
: Reports No Symptoms
Musculoskeletal: Reports No Symptoms
Skin: Reports No Symptoms
Neurological: Reports No Symptoms
Vital Signs
Temp Pulse Resp BP Pulse Ox
97.7 F 56 16 115/80 98
10/25/23 07:30 10/25/23 07:30 10/25/23 07:30 10/25/23 07:30 10/25/23 07:30
Physical Exam
Exam
General: Well Developed, Well Nourished and No Apparent Distress
HEENT: Normocephalic, Anicteric and Atraumatic
Respiratory: Clear
Cardiac: S1/S2 and Regular Rhythm
Breast: Deferred by me
GI: Soft, Non Distended, Tender (Minimal tenderness in the upper abdomen) and Other (Soft with active bowel sounds)
Musculoskeletal: No Edema
Skin: Warm and Dry
Neuro: Awake, Alert and Oriented
Psych: Calm
Results
WBC 4.8 10^3/uL (4.8-10.8) 10/25/23 05:34
Hgb 10.8 g/dL (12.0-16.0) L 10/25/23 05:34
Hct 30.9 % (37.0-47.0) L 10/25/23 05:34
MCV 89.0 fL (81.0-99.0) 10/25/23 05:34
Plt Count 192 10^3/uL (130-400) 10/25/23 05:34
Absolute Neuts (auto) 2.3 10^3/uL (1.4-6.5) 10/25/23 05:34
Sodium 140 mmol/L (135-145) 10/25/23 05:34
Potassium 3.7 mmol/L (3.5-5.1) 10/25/23 05:34
Chloride 108 mmol/L (98-107) H 10/25/23 05:34
Carbon Dioxide 28 mmol/L (22-30) 10/25/23 05:34
BUN 12 mg/dl (7-17) 10/25/23 05:34
Creatinine 0.6 mg/dL (0.6-1.0) 10/25/23 05:34
Calcium 9.3 mg/dl (8.4-10.2) 10/25/23 05:34
Total Bilirubin 0.5 mg/dl (0.2-1.3) 10/25/23 05:34
AST 40 U/L (14-36) H 10/25/23 05:34
ALT 32 U/L (0-35) 10/25/23 05:34
Alkaline Phosphatase 97 U/L (38-126) 10/25/23 05:34
Lipase 67 U/L (23-300) 10/24/23 16:40
Hep Bs Antibody Positive 10/25/23 05:34
Hep B Core Total Ab Reactive (Negative) 10/25/23 05:34
Hep B Core IgM Ab Negative (Negative) 10/25/23 05:34
Hepatitis C Antibody Negative (Negative) 10/25/23 05:34
Diagnostic Image Results:
10/24/2023 obstruction series: No evidence of active cardiopulmonary disease. Oral contrast seen mainly within the colon, progressed to the descending colon with no definite contrast seen within the rectum. No evidence of free intraperitoneal air
10/22/2023 CT of the abdomen pelvis with IV and oral contrast: Status post appendectomy and right hemicolectomy with no evidence of bowel obstruction or free intraperitoneal air. No CT evidence for peritoneal implants. Status post cholecystectomy
with no evidence of biliary dilation. Status post anterior fusion surgery at the L4/5, L5/S1.
Prior GI Procedures:
EGD: 12/28/2022 EGD, Dr. Jni: Normal esophagus, gastritis, normal examined duodenum, biopsies negative for H. pylori or celiac
11/21/2022 EGD, Dr. Jin: Large amount of solid food with oily liquid in the stomach, retained food in the duodenum. Normal esophagus. No biopsies taken.
Colonoscopy: not on record, per pt was done within the past year
Assessment / Plan
-
The patient is a 38-year-old female with a complex past medical history including appendiceal cancer status post right hemicolectomy and other numerous surgeries as well as chemotherapy, MS, GI dysmotility, hypothyroidism, Madison's disease,
diabetes on Trulicity, status post cholecystectomy, who presented to the emergency room with complaints of nausea, vomiting, and constipation, which we are being asked to evaluate for. She has had ongoing worsening constipation after starting on
Trulicity for her diabetes management. Also with symptoms of nausea with vomiting, with no concerning findings on CT or x-ray imaging to suggest obstruction, there was a large amount of stool in the left colon on CT imaging. She was given milk of
molasses enema with production of bowel movement, with improvement in her symptoms. She does admit to gassiness as well. Has been on outpatient regimen with Motegrity and Linzess with no improvement. Her last dose of Trulicity was on Saturday.
She did have mild elevation of her transaminases on admission which are improving.
Problem list:
-Abdominal pain, nausea, vomiting likely secondary to constipation from side effects of GLP-1 therapy
-History of appendiceal cancer status post right hemicolectomy and chemotherapy with multiple surgeries
-Acute on chronic constipation
-Elevated transaminases
Other pertinent medical history:
-Hypothyroidism
-Madison's disease
-Type 2 diabetes
-MS
-GI dysmotility
Recommendations:
-Etiology of current symptoms likely multifactorial given delayed gastric emptying second to Trulicity use versus constipation from medications versus adhesive disease versus other.
---She has had improvement after enemas, having liquid stools but large bowel movement overnight.
-Would continue with bowel regimen with MiraLAX twice daily and Motegrity. Unclear what dosing of Linzess she was on as she was given samples but if she was started on low-dose can consider samples of 290 mcg daily. Will review with Dr. Vieyra
-Will start on clear liquid diet, advance as tolerated
-Ensure adequate hydration
-She should likely avoid GLP-1 medications given her history of this side effects
-PRN antiemetics
-LFTs are downtrending, would follow and repeat in 1 week outpatient
-Hepatitis serologies are negative for acute infection although she does have a positive Hep B Total core antibody suggesting prior exposure but she has immunity with no active infection.
-Will arrange for follow-up with Dr. Jin in the office in 3 to 4 weeks time
-
-
Thank you for consultation and allowing me to participate in the patient's care. Please call the professional services consultant GI physician during the after hours with any questions or concerns.
--- NOTE | 2023-10-25 10:58 | CM ---
Met with pt at bedside
Lives in a 2 story home with her
Unemployed on disability, drives. assists around home, shopping.
DME - cane, CPAP
SNF- denies past hx
HH - has used [facility] in past
Has ride at d/c
PCP - Kimberly Laughlin
Pharm - [facility]
CM will follow for d/c planning
Plan - anticipate home no needs
[2023-10-25 12:08] LABS: Glucose - Point of Care 116 mg/dl (70-99)
--- NOTE | 2023-10-25 14:05 | W.PN.HOSP.TC ---
Today's Communication/Plan
-
advance diet
if tolerates and continues bowel movements--possible d/c home
Assessment / Plan
Assessment / Plan
pt is a 38 year old female
Nausea/Vomiting with ileus--Since HX of hemicolectomy -obstructive series without obstruction--constipation--enemas helping--diet resumed--apprec GI
Transaminitis--Check hepatitis profile--follow LFT
Hypothyroidism--TSH 0.35--cont synthroid
DM type 2 with neuropathy--Accuchecks, insulin SS, DM diet when able to eat--Hold bolus while NPO
DVT ppx hep
Full code
Anticipated Discharge: Within 24 hours
Subjective/Interval History
-
Date of Service: October 25, 2023
pt with crampy abdominal pain--is moving bowels
Objective Data
-
Labs:
Laboratory Results
10/25/23
05:34
WBC 4.8
Hgb 10.8 L
Hct 30.9 L
Plt Count 192
Sodium 140
Potassium 3.7
Chloride 108 H
Carbon Dioxide 28
BUN 12
Creatinine 0.6
Glucose 90
Calcium 9.3
Total Bilirubin 0.5
AST 40 H
ALT 32
Alkaline Phosphatase 97
Vital Signs:
max temp for 24 hours
10/24/23
23:55
Temp 98.1 F
Vital Signs
Temp Pulse Resp BP Pulse Ox
97.7 F 56 16 115/80 98
10/25/23 07:30 10/25/23 07:30 10/25/23 07:30 10/25/23 07:30 10/25/23 10:47
Review of Systems
-
All other systems: Reviewed and negative
Abdomen/GI: Reports Abdominal Pain (crampy)
Physical Exam
-
General: Well Developed, Well Nourished and No Apparent Distress
HEENT: Normocephalic and Atraumatic
Respiratory: Clear to Auscultation; Negative Wheezes, Rales or Rhonchi
Cardiac: Regular Rhythm and S1/S2; Negative Murmur
GI: Soft, Nontender, Nondistended and Normal Bowel Sounds
Musculoskeletal: No Clubbing, No Cyanosis and No Edema
Neuro: Awake and Alert
[2023-10-25 15:44] VITALS: BP 91/54
[2023-10-25 17:06] LABS: Glucose - Point of Care 120 mg/dl (70-99)
[2023-10-25] MEDS: IMITREX 3 MG SC (20:36)
[2023-10-25] MEDS: MIRALAX 17 GRAMS PO (20:39)
[2023-10-25 21:14] LABS: Glucose - Point of Care 113 mg/dl (70-99)
[2023-10-25] MEDS: VOLTAREN 50 MG PO (21:34)
[2023-10-25 23:40] VITALS: BP 115/66
[2023-10-26] MEDS: D5LR 1000 IV (04:11)
[2023-10-26] MEDS: SYNTHROID 75 MCG PO (06:48)
[2023-10-26] MEDS: SYNTHROID 100 MCG PO (06:48)
[2023-10-26 07:00] VITALS: BP 107/49
[2023-10-26] MEDS: VOLTAREN 50 MG PO (08:30)
[2023-10-26] MEDS: HEPARIN SC ×2 (08:30→08:45)
[2023-10-26] MEDS: LINZESS 145 MCG PO (08:30)
[2023-10-26] MEDS: MIRALAX 17 GRAMS PO (08:32)
--- NOTE | 2023-10-26 08:33 | W.PN.HOSP.TC ---
Today's Communication/Plan
-
d/c
Assessment / Plan
Assessment / Plan
pt is a 38 year old female
Nausea/Vomiting with ileus--Since HX of hemicolectomy -obstructive series without obstruction--constipation--enemas helping--diet resumed--apprec GI
Transaminitis--Check hepatitis profile, hep B s AB and Hep B core total reactive (IgM neg)
Hypothyroidism--TSH 0.35--cont synthroid
DM type 2 with neuropathy--Accuchecks, insulin SS, DM diet when able to eat--Hold bolus while NPO
DVT ppx hep
Full code
ok for d/c
Anticipated Discharge: Today
Subjective/Interval History
-
Date of Service: October 26, 2023
pt ready for d/c
Objective Data
-
Vital Signs:
max temp for 24 hours
10/25/23
23:40
Temp 98.3 F
Vital Signs
Temp Pulse Resp BP Pulse Ox
98.3 F 84 18 115/66 98
10/25/23 23:40 10/25/23 23:40 10/25/23 23:40 10/25/23 23:40 10/25/23 23:40
I&O
10/25/23 10/26/23 10/27/23
06:59 06:59 06:59
Intake Total 720 / 720 240 / 240
Balance 720 / 720 240 / 240
Review of Systems
-
All other systems: Reviewed and negative
Physical Exam
-
General: Well Developed, Well Nourished and No Apparent Distress
HEENT: Normocephalic and Atraumatic
Respiratory: Clear to Auscultation; Negative Wheezes or Rhonchi
Cardiac: Regular Rhythm and S1/S2; Negative Murmur
GI: Soft, Nontender, Nondistended and Normal Bowel Sounds
Musculoskeletal: No Clubbing, No Cyanosis and No Edema
Neuro: Awake
Psych: Calm
[2023-10-26 08:36] LABS: Glucose - Point of Care 105 mg/dl (70-99)
--- NOTE | 2023-10-26 11:30 | PTCARENOTE ---
Patient ready for discharge. Removed IV. Went over discharge instructions with patient and patient's .
Ambulated out of hospital.
--- NOTE | 2023-10-26 13:33 | W.DCSUMMARY ---
Discharge Summary
Discharge Data
Date of Admission: 10/24/23
Date of Discharge: 10/26/23
-
Pending Results: No
Hospital Course
Primary care physician : Kimberly Laughlin
Principal Discharge diagnosis : Nausea and vomiting with ileus, transaminitis
Chronic Discharge diagnosis : Hypothyroidism, type 2 diabetes mellitus with neuropathy
Hospital Course : Patient is a 38-year-old female with a history of hypothyroidism and type 2 diabetes along with appendix cancer and right hemicolectomy who presented to the ED 2 days prior to this admission with complaints of vomiting. CAT scan
done at that time did not show any significant findings and the contrast reached the colon. She was started on laxative and enemas secondary to constipation but things did not improve. GI sent her back to the hospital for admission. She recently
switched from Mounjaro to Trulicity (but did have a previous history of constipation with Trulicity). Patient was admitted.
Problem #1: Nausea and vomiting with ileus due to constipation. Patient was seen in consultation by GI. It is suspected that the abrupt change in bowel habits were due to changing back to Trulicity from Mounjaro. Bowel regimen has been restarted
along with MiraLAX twice daily. She will be continued on Motegrity and Linzess. Patient tolerated her diet and is stable for discharge at this time.
Problem #2: Transaminitis. Patient was seen in consultation by GI. Numbers have returned to normal. Unclear what caused elevation (which was mild in the first place). Hepatitis panel was ordered. She is positive for hepatitis B surface antibody
and reactive for hepatitis B core total antibody but negative for IgM. This indicates previous infection with hepatitis B.
Problem #3: All other medical issues. These include Hypothyroidism, type 2 diabetes mellitus with neuropathy. These medical issues were stable during her hospitalization. Medications were continued as able.
Patient stable for discharge home at this time. If there are any questions regarding this dictation or her hospital stay, please not hesitate to call. Our office number is [phone].
Discharge Plan
-
Patient Disposition: Home (Routine Discharge)
Discharge Diagnosis/Procedures: Nausea and vomiting due to ileus, transaminitis improved, hypothyroidism, type 2 diabetes mellitus with neuropathy
Condition: Good
Diet: As tolerated
Activity: As tolerated
Driving Restrictions: As prior to admission
Bathing Restrictions: None
Referrals:
Anshul Jin MD [Active] - 11/15/23 11:30 am (With Faby Osman NP. Please call if you cannot make this appt.)
Kimberly Laughlin MD [Family Provider] - in less than 1 week
Prescriptions:
Continued
levothyroxine 175 mcg Tablet
175 mcg PO DAILY
venlafaxine 37.5 mg Capsule,Extended Release 24hr
37.5 mg PO DAILY
estradiol [Norma] 0.1 mg/24 hr Patch Semiweekly
1 patch TRANSDERMAL MOWEFR@2200
therapeutic multivitamin Tablet
1 tab PO DAILY
ondansetron 8 mg Tablet,Disintegrating
8 mg PO Q8H PRN (Reason: nausea/vomiting)
pantoprazole 40 mg Tablet,Delayed Release (Dr/Ec)
40 mg PO DAILY
cyanocobalamin (vitamin B-12) 1,000 mcg/mL Solution
1,000 mcg IM QMONTH
progesterone micronized 200 mg Capsule
200 mg PO DIRECTED
Patient Comments:
10/24/2023, 14 days on and 14 days off; pt. started taking first dose of this med. last night for 14 days; pt. takes at bedtime.
diclofenac potassium 50 mg Tablet
50 mg PO TID PRN (Reason: migraines)
mupirocin 2 % Ointment
1 applic TOPICAL BID PRN (Reason: cuts, sores on abd folds)
diazepam 5 mg Tablet
10 mg PO HS
diazepam 5 mg Tablet
5 mg PO DAILYPRN PRN (Reason: anxiety)
Visbiome 112.5 billion cell Capsule
2 cap PO DAILY
Patient Comments:
10/24/2023, gummies.
melatonin 5 mg Tablet
5 mg PO HS PRN (Reason: sleep)
lidocaine HCl 2 % Jelly In Applicator
1 applic TOPICAL QIDPRN PRN (Reason: vaginal area)
cholecalciferol (vitamin D3) 75 mcg (3,000 unit) Tablet
75 mcg PO DAILY
estradiol 10 mcg Tablet
10 mcg VAGINAL MOTH@2200
diclofenac potassium 50 mg Powder In Packet
50 mg PO DAILY PRN (Reason: migraines)
azelastine-fluticasone 137-50 mcg/spray [place],Non-Aerosol
1 spray INTRANASAL BID
Motegrity 2 mg Tablet
2 mg PO QPM
Zembrace Symtouch 3 mg/0.5 mL Pen Injector
3 mg SC Q1HPRN MDD 4 doses PRN (Reason: migraines)
Trulicity 3 mg/0.5 mL Pen Injector
3 mg SC SA
Gemtesa 75 mg Tablet
75 mg PO DAILY
Botox
1 dose IM [id number]
Patient Comments:
10/24/2023, next dose due in 2 weeks per pt.
Linzess
1 cap PO DAILYPRN PRN (Reason: diarrhea)
Patient Comments:
10/24/2023, pt. gets samples from her PCP but doesn't know the strength.
naltrexone 5 mg tablet
5 mg PO HS
Patient Comments:
10/24/2023, pt. gets through [facility].
levocetirizine [Xyzal] 5 mg Tablet
5 mg PO HS
Discharge Orders:
Discharge Patient (As Directed); Ordered 10/26/23
Ordered By: Nallely Dooley
Discharge Date and Time
Discharge Date/Time: 10/26/23 11:40
Print Language: TURKISH
== END 2023-10-26 11:40 | disposition home or self-care (01) | DRG 390 ==
LOC: 3 WEST ACU 20:23
PROVIDERS: Emergency Medicine; ADMITTING PHYSICIAN Internal Medicine; ATTENDING PHYSICIAN Internal Medicine; CONSULT PHYSICIAN Internal Medicine Gastroenterology; EMERGENCY PHYSICIAN Emergency Medicine; FAMILY PHYSICIAN Internal Medicine
DX: K56.7 Ileus, unspecified (principal); R74.01 Elevation of levels of liver transaminase levels; E06.3 Autoimmune thyroiditis; E11.40 Type 2 diabetes mellitus with diabetic neuropathy, unspecified; Z85.038 Personal history of other malignant neoplasm of large intestine; Z79.84 Long term (current) use of oral hypoglycemic drugs
CPT/HCPCS: 74022; 74177; 80053; 82962; 83036; 83690; 83735; 84443; 84703; 85025; 86704; 86705; 86706; 86803; 87340; 96361; 96374; 99284; 99285; Q9967

== ENCOUNTER → 2024-05-21 06:26 | Day surgery (SDC) | payer BC, SELFPAY ==
[2024-05-21 14:09] LABS: Glucose - Point of Care 91 mg/dl (70-99)
== END ==
LOC: GI 06:26
PROVIDERS: ATTENDING PHYSICIAN Internal Medicine; FAMILY PHYSICIAN Internal Medicine
DX: Z12.11 Encounter for screening for malignant neoplasm of colon (principal); K63.3 Ulcer of intestine; K62.1 Rectal polyp; K64.8 Other hemorrhoids; Z86.0101 Personal history of adenomatous and serrated colon polyps; Z98.0 Intestinal bypass and anastomosis status
CPT/HCPCS: 45380; 88305; 82962

== ENCOUNTER → 2025-03-31 20:31 | Outpatient (REF) | payer BC, SELFPAY | LOC: PAVMRI 20:31 | PROVIDERS: ATTENDING PHYSICIAN Internal Medicine | DX: M25.562 Pain in left knee (principal) | CPT/HCPCS: 73721 ==